=== PATIENT | female | born 1955 | race Caucasian/White ===

== ENCOUNTER → 2024-01-09 14:40 | Outpatient (REF) | payer OTHER, SELFPAY | LOC: RAD 14:40 | PROVIDERS: ATTENDING PHYSICIAN Family Medicine | DX: R42 Dizziness and giddiness (principal); I67.9 Cerebrovascular disease, unspecified; I10 Essential (primary) hypertension; E78.2 Mixed hyperlipidemia; F41.9 Anxiety disorder, unspecified; F51.04 Psychophysiologic insomnia | CPT/HCPCS: 93880 ==

== ENCOUNTER → 2024-02-08 13:52 | Outpatient (REF) | payer OTHER, SELFPAY | LOC: HWRCS 13:52 | PROVIDERS: ATTENDING PHYSICIAN Internal Medicine Cardiovascular Disease; FAMILY PHYSICIAN Family Medicine | DX: Z86.73 Personal history of transient ischemic attack (TIA), and cerebral infarction without residual deficits (principal); I67.9 Cerebrovascular disease, unspecified; I10 Essential (primary) hypertension; I63.81 Other cerebral infarction due to occlusion or stenosis of small artery; I77.9 Disorder of arteries and arterioles, unspecified | CPT/HCPCS: 93306 ==